=== PATIENT | female | born 1970 | race African-American/Black ===

== ENCOUNTER 2022-01-03 13:03 | Emergency (ER) | payer MEDICARE, MEDICAID ==
[~2022-01-03] VITALS: Ht 167.6 cm; Wt 64.0 kg
[~2022-01-03 13:03] MED LIST: ABIL10 PO; AMLO5TAB4 PO; ASACOL PO; CIPR2.5D13 RIGHTEYE; HYDR-523 PO; INSU100C6 SUBCUT; LISI-652 PO; P20 PO; PROT40 PO; PROZAC PO; WELLBUTRIN PO
[2022-01-03 13:04] VITALS: BP 135/103
[2022-01-03] MEDS ORDERED: ASPIRIN 325MG EC TABLET PO ONE (16:00)
[2022-01-03] MEDS ORDERED: NITROGLYCERIN 0.4MG TABLET SL SL PRN ×2 (17:15→18:00)
[2022-01-03 17:30] LABS: BASOPHILS % 1.2 % (0.0-2.0); HEMATOCRIT. 41.1 % (36.0-48.0); HEMOGLOBIN. 13.9 g/dL (12.0-16.0); LYMPHOCYTES % 26.7 % (20.0-50.0); MEAN CORPUSCULAR HEMOGLOBIN 31.2 pg (28.0-32.0); MEAN CORPUSCULAR VOLUME 92.4 fL (81.0-99.0); MEAN PLATELET VOLUME 8.7 fl (7.4-10.4); MONOCYTES % 5.4 % (2.0-8.0); NEUTROPHILS % 65.7 % (40.0-76.0); PLATELET 381 x1000/uL (130-400); RED BLOOD CELL COUNT 4.45 mill/uL (4.2-5.4); RED CELL DISTRIBUTION WIDTH 16.4 % (11.6-14.6)
[2022-01-03 17:46] LABS: CLARITY URINE CLOUDY (CLEAR); COLOR URINE DARK YELLOW (YELLOW); KETONES URINE 2+ (NEGATIVE); LEUKOCYTE ESTERASE URINE 1+ (NEGATIVE); NITRITE URINE NEGATIVE (NEGATIVE); OCCULT BLOOD URINE NEGATIVE (NEGATIVE); PROTEIN URINE 2+ (NEGATIVE); SPECIFIC GRAVITY URINE 1.033 (1.005-1.030)
[2022-01-03 17:55] LABS: CHLORIDE 103 mEq/L (98-107)
[2022-01-03 17:58] LABS: HCG SCREEN NEGATIVE
[2022-01-03] MEDS ORDERED: POTASSIUM CHLORIDE 20MEQ/PACKET PO ONE (20:30)
== END 2022-01-03 22:54 | disposition left against medical advice (07) ==
LOC: ER 13:03
DX: R07.89 Other chest pain (principal); R06.02 Shortness of breath
CPT/HCPCS: 36415; 71045; 80053; 81003; 83880; 84484; 84703; 85025; 93005; 99285